=== PATIENT | male | born 1975 | race Caucasian/White ===

== ENCOUNTER 2016-09-16 12:08 | Emergency (ER) | payer BC ==
[~2016-09-16] VITALS: Ht 175.3 cm; Wt 98.7 kg
[~2016-09-16 12:08] MED LIST: NOHOMEMEDS
[2016-09-16 16:30] VITALS: BP 136/84
== END 2016-09-16 16:30 | disposition home or self-care (01) ==
LOC: EXP 12:08 → EME 12:08 → EXP 16:30
PROC: 0VNTXZZ Release Prepuce, External Approach (ICD-10-PCS; principal; 2016-09-16)
DX: N47.2 Paraphimosis (principal); Z88.0 Allergy status to penicillin
CPT/HCPCS: J3010